=== PATIENT | male | born 1995 | race Caucasian/White ===

== ENCOUNTER 2021-08-17 23:59 | Emergency (ER) | payer BC ==
[~2021-08-17] VITALS: Ht 188 cm; Wt 72.6 kg
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
--- NOTE | 2021-08-18 01:23 | NUR ---
PT IN CT.
[2021-08-18] MEDS ORDERED: CYCL10TA9 PO (01:24)
[2021-08-18] MEDS ORDERED: HYDR-4209 PO (01:24)
[2021-08-18] MEDS ORDERED: ONDANSETRON 4 MG TAB.RAPDIS ONE (01:27)
[2021-08-18] MEDS ORDERED: CYCLOBENZAPRINE 10 MG TABLET ONE (01:27)
[2021-08-18] MEDS ORDERED: HYDROCODONE/APAP 10/325MG TABLET ONE (01:27)
[2021-08-18] MEDS ORDERED: CYCLOBENZAPRINE 10 MG TABLET PO ONE (01:30)
[2021-08-18] MEDS ORDERED: ONDANSETRON 4 MG TAB.RAPDIS SL ONE (01:30)
[2021-08-18] MEDS ORDERED: HYDROCODONE/APAP 10/325MG TABLET PO ONE (01:30)
--- NOTE | 2021-08-18 01:30 | NUR ---
PT BACK FROM CT.
--- NOTE | 2021-08-18 02:44 | NUR ---
Patient discharged to home in stable condition. Written and verbal after care instructions given. Patient verbalizes understanding of instruction.
[2021-08-18 02:45] VITALS: BP 133/81
== END 2021-08-18 02:45 | disposition home or self-care (01) ==
LOC: ER 08-18 00:03
DX: S16.1XXA Strain of muscle, fascia and tendon at neck level, initial encounter (principal); Z79.899 Other long term (current) drug therapy; V49.49XA Driver injured in collision with other motor vehicles in traffic accident, initial encounter; Y93.89 Activity, other specified; Y92.413 State road as the place of occurrence of the external cause; Y99.8 Other external cause status
CPT/HCPCS: 72125; 99284; Q0162